=== PATIENT | male | born 1965 | race Caucasian/White ===

== ENCOUNTER 2020-07-11 17:54 | Emergency (ER) | payer BC ==
[~2020-07-11] VITALS: Ht 170.2 cm; Wt 80.0 kg
[2020-07-11 17:56] VITALS: BP 144/100
== END 2020-07-11 19:40 | disposition home or self-care (01) ==
LOC: ER 17:55
DX: U07.1 COVID-19 (principal); F17.200 Nicotine dependence, unspecified, uncomplicated
CPT/HCPCS: 87635; 99283; C9803